=== PATIENT | female | born 1950 | race African-American/Black ===

== ENCOUNTER 2016-12-22 02:47 | Emergency (ER) | payer MEDICARE ==
[~2016-12-22] VITALS: Ht 157.5 cm; Wt 74.8 kg
[~2016-12-22 02:47] MED LIST: ASPI-807 PO; CARV3.12 PO; CLOP75TA2 PO; DIAZ10TA PO; OMEP20CA4 PO; OXYC40TA50 PO; PREG200C PO
[2016-12-22] MEDS ORDERED: hydrALAZINE HCL IV 20 MG VIAL ONE (03:31)
[2016-12-22] MEDS: hydrALAZINE HCL IV 20 MG VIAL IV ONE (03:37)
[2016-12-22 03:40] LABS: KETONES,URINE NEGATIVE (NEGATIVE); LEUKOCYTE ESTERASE ,URINE TRACE (NEGATIVE)
[2016-12-22 03:45] LABS: ANION GAP 12 (5-14); CALCIUM, SERUM 9.6 mg/dL (8.5-10.1); CARBON DIOXIDE 31 mmol/L (21-32); CHLORIDE 104 mmol/L (98-107); CREATININE 1.1 mg/dL (0.6-1.3); GFR 60 mL/min (>60); GLUCOSE 123 mg/dL (74-106); POTASSIUM 3.7 mmol/L (3.5-5.1); SODIUM SERUM 143 mmol/L (136-145); UREA NITROGEN, BLOOD 12 mg/dL (7-18)
[2016-12-22 03:52] LABS: TROPONIN I < 0.017 ng/mL (0.00-0.056)
[2016-12-22 03:54] LABS: ADD UA MICROSCOPIC YES
[2016-12-22 03:58] LABS: ADD URINE CULTURE NO; RBC,URINE 0-2 /HPF (0-2); WBC,URINE 0-2 /HPF (0-3)
[2016-12-22 04:32] LABS: BASOPHILS % (AUTO) 0.4 % (0.0-2.0); DIFF TOTAL % 100 %; EOSINOPHILS # (AUTO) 0.1 /CMM (0.0-0.7); EOSINOPHILS % (AUTO) 2.1 % (0.0-6.0); HEMATOCRIT 37 % (33-45); HEMOGLOBIN 12.5 g/dL (11.5-14.8); LYMPHOCYTES # (AUTO) 2.1 /CMM (0.8-4.8); LYMPHOCYTES % (AUTO) 39.3 % (20.0-44.0); MEAN CORPUSCULAR HEMOGLOBIN 30 PG (26.0-33.0); MEAN CORPUSCULAR HGB CONC 33 g/dl (31.0-36.0); MEAN CORPUSCULAR VOLUME 90 fL (82-100); MONOCYTES # (AUTO) 0.4 /CMM (0.1-1.30); MONOCYTES % (AUTO) 7.5 % (2.0-12.0); NEUTROPHILS # (AUTO) 2.8 /CMM (1.8-8.9); NEUTROPHILS % (AUTO) 50.7 % (43.0-81.0); PLATELET COUNT (AUTO) 136 /CMM (150-450); RED BLOOD CELL COUNT(AUTO) 4.16 MIL/uL (4.0-5.2); WHITE BLOOD COUNT (AUTO) 5.5 K/uL (4.3-11.0)
[2016-12-22 05:32] VITALS: BP 138/65
== END 2016-12-22 05:33 | disposition home or self-care (01) ==
LOC: ER 02:48
DX: I10 Essential (primary) hypertension (principal); Z88.5 Allergy status to narcotic agent; R51 Headache; I25.2 Old myocardial infarction; Z79.82 Long term (current) use of aspirin; K21.9 Gastro-esophageal reflux disease without esophagitis; F41.9 Anxiety disorder, unspecified
CPT/HCPCS: 36415; 70450; 71010; 80048; 81001; 84484; 85025; 93005; 96374; 99285; A4606; J0360; 81000-TC; Z7610

== ENCOUNTER 2017-01-04 17:39 | Emergency (ER) | payer MEDICARE ==
[~2017-01-04] VITALS: Ht 160 cm; Wt 72.6 kg
[2017-01-04 18:23] VITALS: BP 165/106
[2017-01-04] MEDS ORDERED: AMLODIPINE BESYLATE 5 MG TABLET PO ONE (19:00)
[2017-01-04] MEDS ORDERED: AMLODIPINE BESYLATE 5 MG TABLET ONE (19:08)
== END 2017-01-04 19:23 | disposition home or self-care (01) ==
LOC: ER 17:44
DX: I10 Essential (primary) hypertension (principal); G89.4 Chronic pain syndrome; I25.10 Atherosclerotic heart disease of native coronary artery without angina pectoris; K21.9 Gastro-esophageal reflux disease without esophagitis; M79.7 Fibromyalgia; I25.2 Old myocardial infarction; Z79.82 Long term (current) use of aspirin; Z88.5 Allergy status to narcotic agent
CPT/HCPCS: 99282; A4606; Z7610